=== PATIENT | male | born 1945 | race Hispanic/Latino ===

== ENCOUNTER 2018-08-30 02:15 | Inpatient (IN) | payer SELFPAY ==
[~2018-08-30] VITALS: Ht 162.6 cm; Wt 76.7 kg
[2018-08-30] MEDS ORDERED: METHYLPREDNISOLONE SOD SUCC 125MG/2ML VIAL ONE (02:41)
[2018-08-30] MEDS ORDERED: IPRATROPIUM/ALBUTEROL SULFATE 3 ML SOLUTION IH ONE ×3 (02:55→11:17)
[2018-08-30 03:03] LABS: BASOPHILS % (AUTO) 0.2 % (0.0-5.0); EOSINOPHILS % (AUTO) 2.1 % (0.0-8.0); HEMATOCRIT 41.4 % (42-54); LYMPHOCYTES % (AUTO) 10.5 % (21.0-51.0); MEAN CORPUSCULAR HGB CONC 32.5 g/dL (32.0-36.0); MEAN CORPUSCULAR VOLUME 89.1 fL (79-99); MONOCYTES % (AUTO) 5.6 % (3.0-13.0); NEUTROPHILS % (AUTO) 81.6 % (40.0-77.0); NUCLEATED RED BLOOD CELLS 0.1 % (0.0-0.19); PLATELET COUNT (AUTO) 124 K/uL (130-400); RED BLOOD CELL COUNT(AUTO) 4.65 MIL/uL (4.50-6.20); RED CELL DISTRIBUTION WIDTH 13.5 % (11.0-15.5); WHITE BLOOD COUNT (AUTO) 12.2 K/uL (4.8-10.8)
[2018-08-30 03:11] LABS: CREATININE 2.7 mg/dL (0.5-1.5); POTASSIUM 4.9 mmol/L (3.5-5.1)
[2018-08-30 03:17] LABS: ALBUMIN 3.1 g/dL (3.5-5.0); BILIRUBIN,DIRECT 0.1 mg/dL (0.0-0.3); BILIRUBIN,TOTAL 0.5 mg/dL (0.2-1.0); TOTAL PROTEIN, SERUM 7.4 g/dL (6.0-8.3)
[2018-08-30] MEDS ORDERED: SODIUM CHLORIDE 0.9% 100 ML IV ONE (03:17)
[2018-08-30] MEDS ORDERED: DILTIAZEM HCL 125 MG/25 ML VIAL IV ONE (03:18)
[2018-08-30 03:24] LABS: B-TYPE NATRIURETIC PEPTIDE 519 pg/mL (0-100)
[2018-08-30 03:26] LABS: ABG BASE EXCESS -4.7 mmol/L (-2.0-3.0); ABG HCO3 19.7 mmol/L (21.0-28.0); ABG PCO2 35 mmHg (35-48)
[2018-08-30 03:28] LABS: APPEARANCE,URINE Clear (CLEAR); BILIRUBIN,URINE Negative (NEGATIVE); COLOR,URINE Yellow (YELLOW); GLUCOSE, URINE (UA) >=1000 mg/dL (NEGATIVE); KETONES,URINE Negative (NEGATIVE); LEUKOCYTE ESTERASE ,URINE Negative (NEGATIVE); NITRATE,URINE Negative (NEGATIVE); OCCULT BLOOD,URINE Small (NEGATIVE); PROTEIN,URINE 300 (NEGATIVE)
[2018-08-30 03:35] LABS: BACTERIA,URINE Rare /HPF (None Seen); RBC,URINE 0-1 /HPF (0-1); SQUAMOUS EPITHELIAL CELL,UR 0-2 /HPF (0-2)
[2018-08-30] MEDS ORDERED: CEFTRIAXONE SODIUM 1 GM IV SCH (05:30)
[2018-08-30] MEDS ORDERED: ONDANSETRON HCL 4 MG/2 ML VIAL IV PRN (05:30)
[2018-08-30] MEDS ORDERED: AZITHROMYCIN 500MG+NS 250ML 250 ML IV SCH (05:30)
[2018-08-30] MEDS ORDERED: ACETAMINOPHEN 325 MG TAB PO PRN ×2 (05:30)
[2018-08-30] MEDS ORDERED: MORPHINE SULFATE 2 MG/ML 1ML SYG IV PRN (05:30)
[2018-08-30] MEDS ORDERED: AZITHROMYCIN 500MG+NS 250ML 250 ML IV ONE (06:11)
[2018-08-30] MEDS ORDERED: CEFTRIAXONE SODIUM 1 GM ONE (06:11)
[2018-08-30] MEDS: IPRATROPIUM/ALBUTEROL SULFATE 3 ML SOLUTION IH SCH ×3 (07:30→18:29)
[2018-08-30] MEDS: FAMOTIDINE/PF 20 MG/2 ML VIAL IV SCH ×2 (09:00→21:00)
[2018-08-30] MEDS: ENOXAPARIN SODIUM 30 MG/0.3 ML SQ SCH ×2 (09:00→21:00)
[2018-08-30] MEDS: METOPROLOL TARTRATE 25 MG TAB PO SCH ×2 (09:00→21:00)
[2018-08-30] MEDS: ASPIRIN 325 MG TABLET PO SCH (09:00)
[2018-08-30] MEDS: FUROSEMIDE 10 MG/ML 2ML VIAL IV SCH ×2 (09:00→21:00)
[2018-08-30] MEDS ORDERED: FUROSEMIDE 10 MG/ML 2ML VIAL ONE ×2 (09:40→22:12)
[2018-08-30] MEDS ORDERED: ASPIRIN 325 MG TABLET ONE (09:40)
[2018-08-30] MEDS ORDERED: ENOXAPARIN SODIUM 30 MG/0.3 ML SQ ONE ×2 (09:41→22:13)
[2018-08-30] MEDS ORDERED: METOPROLOL TARTRATE 25 MG TAB ONE ×2 (09:41→22:13)
[2018-08-30] MEDS ORDERED: FAMOTIDINE/PF 20 MG/2 ML VIAL IV ONE ×2 (09:42→22:13)
[2018-08-30] MEDS: DILTIAZEM HCL 60 MG TABLET PO SCH ×2 (12:00→18:00)
[2018-08-30] MEDS ORDERED: LEVOFLOXACIN 500 MG/D5W 100 ML 100 ML IV SCH (12:00)
[2018-08-30 13:06] LABS: CREATININE,URINE RANDOM 44 mg/dL (30-135); SODIUM,URINE RANDOM 87 mmol/l (40-220)
[2018-08-30] MEDS ORDERED: DILTIAZEM HCL 60 MG TABLET ONE (18:41)
[2018-08-30] MEDS ORDERED: LEVOFLOXACIN 500 MG/D5W 100 ML 100 ML ONE (22:35)
[2018-08-30] MEDS ORDERED: INSULIN HUMULIN R 100 UNIT/ML 3ML ONE (23:02)
[2018-08-31] MEDS: IPRATROPIUM/ALBUTEROL SULFATE 3 ML SOLUTION IH SCH ×5 (00:37→23:29)
[2018-08-31] MEDS ORDERED: DILTIAZEM HCL 60 MG TABLET ONE (00:39)
[2018-08-31 01:21] VITALS: BP 156/94
[2018-08-31 03:53] VITALS: BP 128/73
[2018-08-31] MEDS: DILTIAZEM HCL 60 MG TABLET PO SCH ×5 (05:51→23:56)
[2018-08-31 06:21] LABS: THYROID STIMULATING HORMONE 1.32 uIU/mL (0.36-3.74); TROPONIN I 0.22 ng/mL (0.00-0.06)
[2018-08-31 08:00] VITALS: BP 135/79
[2018-08-31] MEDS: METOPROLOL TARTRATE 25 MG TAB PO SCH ×2 (08:36→20:45)
[2018-08-31] MEDS: ASPIRIN 325 MG TABLET PO SCH (08:36)
[2018-08-31] MEDS: FUROSEMIDE 10 MG/ML 2ML VIAL IV SCH (08:37)
[2018-08-31] MEDS: ENOXAPARIN SODIUM 30 MG/0.3 ML SQ SCH ×2 (08:37→20:45)
[2018-08-31] MEDS: FAMOTIDINE/PF 20 MG/2 ML VIAL IV SCH ×2 (08:37→20:45)
[2018-08-31] MEDS ORDERED: WARFARIN SODIUM 5 MG TAB PO SCH (09:45)
[2018-08-31 09:55] LABS: HEMOGLOBIN A1C 10.1 % (4.0-6.0)
[2018-08-31 11:32] VITALS: BP 142/85
--- NOTE | 2018-08-31 13:53 | NUR ---
DC PLAN VISITED WITH PATIENT. PATIENT LIVES WITH SPOUSE. INDEPENDENT ABLE TO PERFORM ADL'S. PATIENT HAS NO SERVICES OR DME'S. FEELS SAFE TO RETURN HOME. PATIENT IS FROM [place] PLAN TO RETURN ONCE DISCHARGED. Addendum: 08/31/18 at 1354 by EULALIA SOLIS RN CM Amended: Links added.
[2018-08-31 16:39] VITALS: BP 144/83
[2018-08-31] MEDS ORDERED: DEXTROSE 50%-WATER 50 ML DISP.SYRIN IV PRN (17:30)
[2018-08-31] MEDS ORDERED: GLUCAGON 1MG KIT 1 MG ML IM PRN (17:30)
[2018-08-31] MEDS ORDERED: FUROSEMIDE 10 MG/ML 4ML VIAL ONE (17:51)
[2018-08-31] MEDS: WARFARIN SODIUM 5 MG TAB PO SCH (17:53)
[2018-08-31] MEDS: GLIPIZIDE 5 MG TABLET PO SCH (17:53)
[2018-08-31] MEDS: INSULIN HUMULIN R 100 UNIT/ML 3ML SQ SCH ×2 (18:01→20:57)
[2018-08-31 20:02] VITALS: BP 144/74
[2018-08-31] MEDS: LEVOFLOXACIN 500 MG/D5W 100 ML 100 ML IV SCH (20:46)
[2018-08-31] MEDS: INSULIN GLARGINE 100 UNITS/ML 10 ML VIAL SQ SCH (20:59)
[2018-08-31] MEDS ORDERED: FUROSEMIDE 10 MG/ML 4ML VIAL IVP SCH (21:00)
[2018-09-01] VITALS: BP 167/88
[2018-09-01 03:45] VITALS: BP 167/78
[2018-09-01 03:46] LABS: BASOPHILS % (AUTO) 0.4 % (0.0-5.0); EOSINOPHILS % (AUTO) 1.1 % (0.0-8.0); HEMATOCRIT 34.4 % (42-54); LYMPHOCYTES % (AUTO) 16.7 % (21.0-51.0); MEAN CORPUSCULAR HEMOGLOBIN 30.2 pg (27.0-33.0); MONOCYTES % (AUTO) 8.9 % (3.0-13.0); NEUTROPHILS % (AUTO) 72.9 % (40.0-77.0); NUCLEATED RED BLOOD CELLS 0.1 % (0.0-0.19); PLATELET COUNT (AUTO) 115 K/uL (130-400); RED BLOOD CELL COUNT(AUTO) 3.86 MIL/uL (4.50-6.20); RED CELL DISTRIBUTION WIDTH 13.7 % (11.0-15.5); WHITE BLOOD COUNT (AUTO) 9.4 K/uL (4.8-10.8)
[2018-09-01 03:58] LABS: INR 1.18 (0.85-1.15); PARTIAL THROMBOPLASTIN TIME 30.8 SEC (26.3-35.5); PROTHROMBIN TIME 12.3 SEC (9.6-11.6)
[2018-09-01 04:08] LABS: CREATININE 3.8 mg/dL (0.5-1.5); POTASSIUM 3.8 mmol/L (3.5-5.1)
[2018-09-01] MEDS: DILTIAZEM HCL 60 MG TABLET PO SCH ×3 (05:52→17:31)
[2018-09-01] MEDS: FUROSEMIDE 10 MG/ML 4ML VIAL IVP SCH ×3 (05:53→17:31)
[2018-09-01] MEDS: INSULIN HUMULIN R 100 UNIT/ML 3ML SQ SCH ×4 (05:57→21:00)
[2018-09-01] MEDS: GLIPIZIDE 5 MG TABLET PO SCH ×2 (06:07→16:30)
[2018-09-01] MEDS: IPRATROPIUM/ALBUTEROL SULFATE 3 ML SOLUTION IH SCH ×3 (06:18→18:43)
--- NOTE | 2018-09-01 07:30 | NUR ---
ASSESSMENT ENCOUNTERED PT A&OX3, CALM COOPERATIVE AND DOES NOT APPEAR TO BE IN ANY DISTRESS NOR ANY NEURO DEFICITS PRESENT. PT DENIES PAIN, SOB, NAUSEA. TELE MONITOR DISPLAYS ATRIAL FIBRILLATION, 80-100 BEATS PER MINUTE. PT IS AMBULATORY, GAIT STEADY AND STRONG WITH STAND BY ASSIST. CALL LIGHT WITHIN REACH.
[2018-09-01 07:43] VITALS: BP 145/80
[2018-09-01] MEDS ORDERED: GLUCAGON 1MG KIT 1 MG ML IM PRN (08:15)
[2018-09-01] MEDS ORDERED: DEXTROSE 50%-WATER 50 ML DISP.SYRIN IV PRN (08:15)
[2018-09-01] MEDS: ASPIRIN 325 MG TABLET PO SCH (08:54)
[2018-09-01] MEDS: METOPROLOL TARTRATE 25 MG TAB PO SCH ×2 (08:55→21:57)
[2018-09-01] MEDS: ENOXAPARIN SODIUM 30 MG/0.3 ML SQ SCH ×2 (08:55→21:57)
[2018-09-01] MEDS: FAMOTIDINE/PF 20 MG/2 ML VIAL IV SCH ×2 (08:55→21:56)
[2018-09-01 12:00] VITALS: BP 146/75
[2018-09-01 16:00] VITALS: BP 155/88
[2018-09-01] MEDS: WARFARIN SODIUM 5 MG TAB PO SCH (16:00)
[2018-09-01] MEDS ORDERED: FENO200C PO (17:52)
[2018-09-01] MEDS ORDERED: PIOG15TA66 PO (17:52)
[2018-09-01] MEDS ORDERED: HYDR25TA PO (17:52)
[2018-09-01] MEDS ORDERED: METF-445 PO (17:52)
[2018-09-01] MEDS ORDERED: FOLI1TAB15 PO (17:52)
[2018-09-01] MEDS ORDERED: NIFE10 PO (17:52)
[2018-09-01] MEDS ORDERED: TAMS0.4C32 PO (17:52)
[2018-09-01] MEDS ORDERED: ISOS10TA2 PO (17:52)
[2018-09-01] MEDS ORDERED: FINA5TAB41 PO (17:52)
[2018-09-01] MEDS ORDERED: LOSA50TA64 PO (17:52)
[2018-09-01 19:28] VITALS: BP 135/64
--- NOTE | 2018-09-01 21:40 | NUR ---
REPORT FROM ABHILASH DIAZ.
[2018-09-01] MEDS: INSULIN GLARGINE 100 UNITS/ML 10 ML VIAL SQ SCH (21:53)
[2018-09-01] MEDS: LEVOFLOXACIN 500 MG/D5W 100 ML 100 ML IV SCH (21:56)
[2018-09-02] VITALS: BP 172/73
[2018-09-02] MEDS: DILTIAZEM HCL 60 MG TABLET PO SCH ×4 (00:23→17:18)
[2018-09-02] MEDS: IPRATROPIUM/ALBUTEROL SULFATE 3 ML SOLUTION IH SCH ×3 (00:33→10:53)
[2018-09-02 02:55] VITALS: BP 136/82
[2018-09-02 05:21] LABS: BASOPHILS % (AUTO) 0.5 % (0.0-5.0); EOSINOPHILS % (AUTO) 5.2 % (0.0-8.0); HEMATOCRIT 36.6 % (42-54); LYMPHOCYTES % (AUTO) 23.6 % (21.0-51.0); MEAN CORPUSCULAR HEMOGLOBIN 29.8 pg (27.0-33.0); MEAN CORPUSCULAR HGB CONC 34.1 g/dL (32.0-36.0); MEAN CORPUSCULAR VOLUME 87.6 fL (79-99); MONOCYTES % (AUTO) 11.7 % (3.0-13.0); NUCLEATED RED BLOOD CELLS 0.1 % (0.0-0.19); PLATELET COUNT (AUTO) 114 K/uL (130-400); RED BLOOD CELL COUNT(AUTO) 4.18 MIL/uL (4.50-6.20); RED CELL DISTRIBUTION WIDTH 13.5 % (11.0-15.5); WHITE BLOOD COUNT (AUTO) 7.6 K/uL (4.8-10.8)
[2018-09-02 05:33] LABS: CREATININE 3.8 mg/dL (0.5-1.5); POTASSIUM 3.2 mmol/L (3.5-5.1)
[2018-09-02 05:36] LABS: INR 2.16 (0.85-1.15); PROTHROMBIN TIME 22.3 SEC (9.6-11.6)
[2018-09-02] MEDS: INSULIN HUMULIN R 100 UNIT/ML 3ML SQ SCH ×2 (05:48→12:26)
[2018-09-02] MEDS: GLIPIZIDE 5 MG TABLET PO SCH ×2 (06:49→16:30)
--- NOTE | 2018-09-02 07:40 | NUR ---
ASSESSMENT ENCOUNTERED PT A&OX3, CALM COOPERATIVE AND DOES NOT APPEAR TO BE IN ANY DISTRESS NOR ANY NEURO DEFICITS PRESENT. PT DENIES PAIN, SOB, NAUSEA. TELE MONITOR CONTINUES TO DISPLAY ATRIAL FIBRILLATION WITH A RATE OF 80-99 BEATS PER MINUTE. PT IS AMBULATORY, GAIT SLOW BUT STEADY WITH CANE AND STAND BY ASSIST. CALL LIGHT WITHIN REACH, FAMILY AT BEDSIDE.
[2018-09-02 08:12] VITALS: BP 149/74
[2018-09-02] MEDS ORDERED: FAMOTIDINE 20MG TAB 20 MG TAB PO SCH ×2 (09:45→09:58)
[2018-09-02] MEDS ORDERED: FUROSEMIDE 40 MG TABLET PO SCH (09:45)
[2018-09-02] MEDS ORDERED: ASPIRIN 81MG TAB.CHEW PO SCH (09:45)
[2018-09-02] MEDS: METOPROLOL TARTRATE 25 MG TAB PO SCH (10:25)
[2018-09-02 11:54] VITALS: BP 150/84
[2018-09-02] MEDS ORDERED: METO25TA6 PO (12:13)
[2018-09-02] MEDS ORDERED: DILT60SR PO (12:13)
[2018-09-02] MEDS ORDERED: AZIT250T PO (12:13)
[2018-09-02] MEDS ORDERED: WARF-57 PO (12:13)
[2018-09-02 16:00] VITALS: BP 147/75
[2018-09-02] MEDS: WARFARIN SODIUM 5 MG TAB PO SCH (17:18)
--- NOTE | 2018-09-02 18:15 | NUR ---
DISCHARGE INSTRUCTIONS GIVEN, PIV REMOVED AND INTACT, PRESCRIPTION GIVEN, DISCHARGED HOME TO FAMILY VEHICLE VIA WHEELCHAIR.
== END 2018-09-02 17:30 | disposition home or self-care (01) | DRG 291 ==
LOC: EDH 02:15 → EDHIP 02:16 → 2AH 08-31 01:07
PROVIDERS: ADMIT Internal Medicine; ATTEND Internal Medicine
DX: I13.0 Hypertensive heart and chronic kidney disease with heart failure and stage 1 through stage 4 chronic kidney disease, or unspecified chronic kidney disease (principal); J18.9 Pneumonia, unspecified organism; I48.91 Unspecified atrial fibrillation; E11.22 Type 2 diabetes mellitus with diabetic chronic kidney disease; E78.5 Hyperlipidemia, unspecified; I50.9 Heart failure, unspecified; N18.9 Chronic kidney disease, unspecified; Z79.84 Long term (current) use of oral hypoglycemic drugs; Z90.49 Acquired absence of other specified parts of digestive tract; Z79.899 Other long term (current) drug therapy
CPT/HCPCS: 36415; 36600; 71045; 71250; 76770; 80048; 80076; 81001; 82550; 82570; 82803; 82948; 83036; 83874; 83880; 84300; 84443; 84484; 85025; 85610; 85730; 93005; 93306; 94640; 94660; 94664; 99291; G0378; J0456; J0696; J1650; J1815; J1940; J1956; J2930; J3490; J7070